=== PATIENT | female | born 1940 | race Two or more races ===

== ENCOUNTER 2018-02-12 11:05 | Inpatient (IN) | payer MEDICARE, MEDICAID ==
[~2018-02-12] VITALS: Ht 160 cm; Wt 59.0 kg
--- NOTE | 2018-02-12 11:30 | Emergency Room Report ---
History of Present Illness General Chief Complaint: Syncope Source: Patient, EMS Present Illness HPI The patient presents after a syncopal episode. She's not been eating well for several days and is had a productive cough. After syncopal episode she vomited once. It was the first time she's vomited. She denies any blood in the vomit and has had no melena or hematochezia. Stools been slightly loose. She has felt weak when she stands today. She also feels thirsty. She denies any chest pain or palpitations. She was taking a shower. She denies any significant trauma. The patient recently had nasal skin biopsy. She does not have the results of this. The patient has diabetes and hypertension. She also has asthma but denies wheezing. No fever, chills, dyspnea, dysuria, abdominal pain, calf pain/swelling, rashes, headache. Allergies: Coded Allergies: No Known Allergies (Unverified , 02/12/18) Patient History Past Medical History: see triage record Past Surgical History: hysterectomy Social History: Denies: smoking, alcohol use, drug use Social History Narrative At home Reviewed Nursing Documentation: PMH: Agreed; PSxH: Agreed Nursing Documentation-PMH Past Medical History: No History, Except For Hx Hypertension: Yes Review of Systems All Other Systems: negative except mentioned in HPI Physical Exam Vital Signs Date Time Temp Pulse Resp B/P (MAP) Pulse Ox O2 Delivery O2 Flow Rate FiO2 02/12/18 11:02 78 20 160/80 98 Room Air Sp02 EP Interpretation: reviewed, normal General Appearance: well appearing, no apparent distress, GCS 15 Head: normocephalic Eyes: bilateral eye normal inspection, bilateral eye PERRL, bilateral eye EOMI ENT: moist mucus membranes Neck: supple Respiratory: lungs clear, normal breath sounds Cardiovascular #1: regular rate, rhythm Cardiovascular #2: 2+ radial (R) Gastrointestinal: normal inspection, normal bowel sounds, non tender, no mass, non-distended Musculoskeletal: back normal, gait/station normal, normal range of motion Neurologic: alert, oriented x3, product craftsman III-XII nml as tested, motor strength/tone normal, DTRs symmetric, sensory intact, cerebellar normal, speech normal Psychiatric: mood/affect normal Skin: normal inspection, warm/dry, other - Biopsy area tip of nose Medical Decision Making Diagnostic Impression: Primary Impression: Syncope Qualified Codes: R55 - Syncope and collapse Additional Impression: UTI (urinary tract infection) Qualified Codes: N39.0 - Urinary tract infection, site not specified ER Course Patient presents with syncope. Differential includes acute myocardial infarction, arrhythmia, dehydration, vasovagal, amongst others. There's a prodrome of upper respiratory illness and therefore we need to exclude sepsis. The patient be evaluated with an EKG, chest x-ray, blood cultures, lactate and other labs. The patient will receive IV hydration and cardiac observation. EKG without injury. White count is minimally elevated. The patient has pyuria. Initial troponin is negative. Chest x-ray has a slight increased markings in the left lower lobe. Antibodies were begun. The patient is not observed coughing here and is improved with IV hydration. We still need to have cardiac observation for the syncope and also she needs IV antibiotics for the urinary tract infection. The patient is somewhat improved but admitted for further cardiac observation. Laboratory Tests Test 02/12/18 11:20 02/12/18 12:25 White Blood Count 11.8 K/UL (4.8-10.8) H Red Blood Count 4.13 M/UL (4.20-5.40) L Hemoglobin 12.0 G/DL (12.0-16.0) Hematocrit 36.7 % (37.0-47.0) L Mean Corpuscular Volume 89 FL (80-99) Mean Corpuscular Hemoglobin 29.0 PG (27.0-31.0) Mean Corpuscular Hemoglobin Concent 32.6 G/DL (32.0-36.0) Red Cell Distribution Width 12.4 % (11.6-14.8) Platelet Count 163 K/UL (150-450) Mean Platelet Volume 5.7 FL (6.5-10.1) L Neutrophils (%) (Auto) 48.8 % (45.0-75.0) Lymphocytes (%) (Auto) 39.7 % (20.0-45.0) Monocytes (%) (Auto) 9.3 % (1.0-10.0) Eosinophils (%) (Auto) 1.4 % (0.0-3.0) Basophils (%) (Auto) 0.8 % (0.0-2.0) Prothrombin Time 9.3 SEC (9.30-11.50) Prothrombin Time INR 0.9 (0.9-1.1) PTT 24 SEC (23-33) Sodium Level 136 MMOL/L (136-145) Potassium Level 3.7 MMOL/L (3.5-5.1) Chloride Level 100 MMOL/L (98-107) Carbon Dioxide Level 24 MMOL/L (21-32) Anion Gap 12 mmol/L (5-15) Blood Urea Nitrogen 15 mg/dL (7-18) Creatinine 0.9 MG/DL (0.55-1.30) Estimate Glomerular Filtration Rate mL/min (>60) Glucose Level 141 MG/DL (74-106) H Lactic Acid Level 1.50 mmol/L (0.66-2.22) Calcium Level 9.1 MG/DL (8.5-10.1) Total Bilirubin 0.4 MG/DL (0.2-1.0) Aspartate Amino Transferase (AST) 51 U/L (15-37) H Alanine Aminotransferase (ALT) 50 U/L (12-78) Alkaline Phosphatase 184 U/L (46-116) H Total Creatine Kinase 46 U/L (26-308) Troponin I 0.000 ng/mL (0.000-0.056) Pro-B-Type Natriuretic Peptide 325 pg/mL (0-125) H Total Protein 8.3 G/DL (6.4-8.2) H Albumin 3.6 G/DL (3.4-5.0) Globulin 4.7 g/dL Albumin/Globulin Ratio 0.8 (1.0-2.7) L Lipase 354 U/L (73-393) Urine Color Yellow Urine Appearance Turbid Urine pH 6 (4.5-8.0) Urine Specific [place] 1.020 (1.005-1.035) Urine Protein 3+ (NEGATIVE) H Urine Glucose (UA) Negative (NEGATIVE) Urine Ketones 1+ (NEGATIVE) H Urine Occult Blood 2+ (NEGATIVE) H Urine Nitrite Negative (NEGATIVE) Urine Bilirubin 1+ (NEGATIVE) H Urine Ictotest Negative Urine Urobilinogen 1 MG/DL (0.0-1.0) H Urine Leukocyte Esterase 3+ (NEGATIVE) H Urine RBC 5-10 /HPF (0 - 2) H Urine WBC 40-60 /HPF (0 - 2) H Urine Squamous Epithelial Cells Moderate /LPF (NONE/OCC) H Urine Bacteria Few /HPF (NONE) Urine Hyaline Casts 2-4 /LPF (NONE) H EKG Diagnostic Results Rate: normal Rhythm: NSR ST Segments: no acute changes Rhythm Strip Diag. Results EP Interpretation: yes Rhythm: NSR, no PVC's, no ectopy Chest X-Ray Diagnostic Results Chest X-Ray Diagnostic Results : Chest X-Ray Ordered: Yes # of Views/Limited/Complete: 1 View Indication: Other EP Interpretation: Yes Interpretation: no effusion, no pneumothorax, other - increased hope L base Impression: Other Electronically Signed by: Electronically signed by Mike Serrano MD Last Vital Signs Date Time Temp Pulse Resp B/P (MAP) Pulse Ox O2 Delivery O2 Flow Rate FiO2 02/12/18 14:50 97.4 74 20 138/49 99 Room Air 97.4 Status: improved Disposition: ADMITTED INPATIENT Condition: Serious Scripts Cephalexin* (KEFLEX*) 500 Mg Capsule 500 MG ORAL EVERY 12 HOURS for 5 Days, #10 CAP 0 Refills Prov: Leslye Bailey SHIPPING ASSOCIATE 02/14/18 Mike Serrano M.D. February 12, 2018 11:29
[2018-02-12] MEDS ORDERED: AMLODIPINE-BEN1 EAC1 ORAL (11:37)
[2018-02-12] MEDS ORDERED: LEVOTHYROXINE75 MCG ORAL (11:37)
[2018-02-12] MEDS ORDERED: CRESTOR10 M2 ORAL (11:37)
[2018-02-12] MEDS ORDERED: METFORMIN HCL500 M1 ORAL (11:37)
[2018-02-12] MEDS ORDERED: METOPROLOL TART50 MG ORAL (11:37)
[2018-02-12] MEDS ORDERED: MONTELUKAST SOD10 MG ORAL (11:37)
[2018-02-12 11:46] VITALS: BP 125/35
[2018-02-12 11:46] LABS: BASOPHILS % (AUTO) 0.8 % (0.0-2.0); EOSINOPHILS % (AUTO) 1.4 % (0.0-3.0); HEMATOCRIT 36.7 % (37.0-47.0); LYMPHOCYTES % (AUTO) 39.7 % (20.0-45.0); MEAN CORPUSCULAR VOLUME 89 FL (80-99); MONOCYTES % (AUTO) 9.3 % (1.0-10.0); NEUTROPHILS % (AUTO) 48.8 % (45.0-75.0); PLATELET COUNT 163 K/UL (150-450); RED BLOOD COUNT 4.13 M/UL (4.20-5.40); RED CELL DISTRIBUTION WIDTH 12.4 % (11.6-14.8); WHITE BLOOD COUNT 11.8 K/UL (4.8-10.8)
[2018-02-12 11:50] LABS: ANION GAP 12 mmol/L (5-15); BLOOD UREA NITROGEN 15 mg/dL (7-18); CALCIUM 9.1 MG/DL (8.5-10.1); CARBON DIOXIDE 24 MMOL/L (21-32); CHLORIDE 100 MMOL/L (98-107); CREATININE 0.9 MG/DL (0.55-1.30); POTASSIUM 3.7 MMOL/L (3.5-5.1); SODIUM 136 MMOL/L (136-145)
[2018-02-12 11:58] LABS: INR 0.9 (0.9-1.1)
--- NOTE | 2018-02-12 11:58 | Diagnostic Imaging Report ---
Indication: Chest pain Technique: One view of the chest Comparison: none Findings: The heart is borderline enlarged. The aorta is tortuous and calcified. There is some atelectasis at the left lung base. Lungs and pleural spaces otherwise clear. Impression: No acute process
[2018-02-12] MEDS ORDERED: cefTRIAXone 1 GM in NS 55 ML IVPB ONE (12:00)
[2018-02-12 12:04] LABS: ALANINE AMINOTRANSFERASE 50 U/L (12-78); ALBUMIN 3.6 G/DL (3.4-5.0); ALBUMIN/GLOBULIN RATIO 0.8 (1.0-2.7); ALKALINE PHOSPHATASE 184 U/L (46-116); ASPARTATE AMINO TRANSFERASE 51 U/L (15-37); BILIRUBIN,TOTAL 0.4 MG/DL (0.2-1.0); CREATINE KINASE 46 U/L (26-308)
[2018-02-12 12:45] LABS: APPEARANCE,URINE TURBID; BILIRUBIN, URINE 1+ (NEGATIVE); GLUCOSE, URINE (UA) NEGATIVE (NEGATIVE); KETONES,URINE 1+ (NEGATIVE); LEUKOCYTE ESTERASE ,URINE 3+ (NEGATIVE); NITRITE,URINE NEGATIVE (NEGATIVE); PH,URINE 6 (4.5-8.0); PROTEIN,URINE 3+ (NEGATIVE); UROBILINOGEN,URINE 1 MG/DL (0.0-1.0)
[2018-02-12 12:50] LABS: COLOR,URINE YELLOW
[2018-02-12 14:09] VITALS: BP 138/49
[2018-02-12] MEDS ORDERED: Norco 5mg/325mg tab ORAL PRN (17:15)
[2018-02-12 20:00] VITALS: BP 142/58
[2018-02-12] MEDS: Heparin 5000 units/ml inj SUBQ SCH (20:31)
[2018-02-12] MEDS: NovoLOG Insulin Flexpen SUBQ SCH (21:12)
[2018-02-13 04:00] VITALS: BP 126/65
[2018-02-13] MEDS: NovoLOG Insulin Flexpen SUBQ SCH ×4 (06:27→21:00)
[2018-02-13 08:00] VITALS: BP 147/57
[2018-02-13 08:30] LABS: BASOPHILS % (AUTO) 0.5 % (0.0-2.0); EOSINOPHILS % (AUTO) 0.6 % (0.0-3.0); HEMATOCRIT 30.9 % (37.0-47.0); HEMOGLOBIN 10.3 G/DL (12.0-16.0); LYMPHOCYTES % (AUTO) 37.4 % (20.0-45.0); MEAN CORPUSCULAR VOLUME 87 FL (80-99); MONOCYTES % (AUTO) 9.5 % (1.0-10.0); NEUTROPHILS % (AUTO) 51.9 % (45.0-75.0); PLATELET COUNT 144 K/UL (150-450); RED BLOOD COUNT 3.54 M/UL (4.20-5.40); RED CELL DISTRIBUTION WIDTH 12.1 % (11.6-14.8); WHITE BLOOD COUNT 8.6 K/UL (4.8-10.8)
[2018-02-13] MEDS: Heparin 5000 units/ml inj SUBQ SCH ×2 (09:00→21:00)
[2018-02-13 09:07] LABS: ALANINE AMINOTRANSFERASE 46 U/L (12-78); ALBUMIN 3.1 G/DL (3.4-5.0); ALBUMIN/GLOBULIN RATIO 0.8 (1.0-2.7); ALKALINE PHOSPHATASE 155 U/L (46-116); ANION GAP 12 mmol/L (5-15); ASPARTATE AMINO TRANSFERASE 43 U/L (15-37); BILIRUBIN,TOTAL 0.3 MG/DL (0.2-1.0); BLOOD UREA NITROGEN 10 mg/dL (7-18); CALCIUM 8.4 MG/DL (8.5-10.1); CARBON DIOXIDE 22 MMOL/L (21-32); CHLORIDE 103 MMOL/L (98-107); CHOLESTEROL 104 MG/DL (< 200); CREATININE 0.7 MG/DL (0.55-1.30); HDL CHOLESTEROL 33 MG/DL (40-60); POTASSIUM 3.7 MMOL/L (3.5-5.1); SODIUM 137 MMOL/L (136-145); TRIGLYCERIDES 80 MG/DL (30-150)
[2018-02-13] MEDS: Montelukast 10mg tablet ORAL SCH (10:04)
[2018-02-13] MEDS: Metoprolol Succinate XL 50mg tab ORAL SCH (10:04)
[2018-02-13 12:00] VITALS: BP 127/85
[2018-02-13] MEDS: cefTRIAXone 1 GM in D5W 55 ML IVPB SCH (14:08)
[2018-02-13] MEDS: guaiFENesin 100mg/5ml Liq ud ORAL PRN ×2 (15:32→21:14)
[2018-02-13 16:00] VITALS: BP 146/57
--- NOTE | 2018-02-13 16:12 | History and Physical ---
History of Present Illness General Date patient seen: February 13, 2018 Time patient seen: 14:00 Reason for Hospitalization: Syncope Present Illness HPI This is a 77 y/o female with a PMH of T2DM, HTN, HLD, and hypothyroidism that presented to the ED after having a syncopal episode and vomiting. Patient states that she had NBNB emesis prior to her syncopal episode. She states that she sat down on her bed, and then passed out but her son managed to catch her before she hit her head. Per son, the syncopal episode lasted about 2-3 minutes and after she regained consciousness, she had another NBNB emesis. Patient states that this has not happened to her before. Patient states that she has not been eating or drinking for the last several days because of lack of appetite and patient does state that she has been taking her medications, including her metformin. Patient was noted to have a UTI and was therefore started on abx in the ED. CXR was negative. Carotid U/S was normal with minimal soft plaque to right bulb. Patient also reports left lower extremity pain for several days. Denies swelling, erythema. Denies chest pain, sob, f/c, n/v, abdominal pain at this time. Allergies: Coded Allergies: No Known Allergies (Unverified , 02/12/18) Medication History Scheduled Amlodipine Besylate/Benazepril 10-40 Mg (Amlodipine-Benazepril 10-40 Mg), 1 CAP ORAL DAILY, (Reported) Levothyroxine Sodium* (Levothyroxine Sodium*), 50 MCG ORAL DAILY, (Reported) Metformin Hcl* (Metformin Hcl*), 500 MG ORAL TWICE A DAY, (Reported) Metoprolol Tartrate* (Metoprolol Tartrate*), 50 MG ORAL DAILY, (Reported) Montelukast Sodium* (Montelukast Sodium*), 10 MG ORAL DAILY, (Reported) Rosuvastatin Calcium* (Crestor*), 5 MG ORAL DAILY, (Reported) Patient History History Provided By: Patient, Family Member Healthcare decision maker Resuscitation status Full Code Advanced Directive on File Review of Systems All Other Systems: negative except mentioned in HPI Physical Exam General Appearance: no apparent distress, alert HEENT: normocephalic, atraumatic Neck: non-tender, normal alignment, supple Respiratory/Chest: chest wall non-tender, lungs clear, normal breath sounds Cardiovascular/Chest: normal peripheral pulses, normal rate, regular rhythm Abdomen: normal bowel sounds, non tender, soft Extremities: normal range of motion, non-tender Skin Exam: normal pigmentation, warm/dry 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, no motor/sensory deficits, alert, oriented x 3 Last 24 Hour Vital Signs Date Time Temp Pulse Resp B/P (MAP) Pulse Ox O2 Delivery O2 Flow Rate FiO2 02/13/18 16:00 98.2 79 20 146/57 99 Room Air 98.2 02/13/18 12:00 97.7 73 20 127/85 96 Room Air 97.7 02/13/18 12:00 78 02/13/18 10:04 79 147/57 02/13/18 10:04 79 147/57 02/13/18 10:03 147/57 02/13/18 09:10 81 02/13/18 09:05 77 02/13/18 09:00 73 02/13/18 08:00 79 02/13/18 08:00 96.3 79 20 147/57 97 Room Air 96.3 02/13/18 04:01 77 02/13/18 04:00 97.0 80 20 126/65 98 Room Air 97.0 02/12/18 23:38 77 02/12/18 20:10 80 02/12/18 20:05 80 02/12/18 20:00 76 02/12/18 20:00 98.0 80 20 142/58 99 Room Air 98.0 02/12/18 19:13 86 02/12/18 17:00 82 96 95 Intake and Output 02/12/18 02/13/18 19:00 07:00 Intake Total 1130 ml 750 ml Balance 1130 ml 750 ml Intake Oral 0 ml IV Total 1130 ml 750 ml # Voids 2 # Bowel Movements 1 Laboratory Tests Test 02/13/18 08:00 02/13/18 13:23 White Blood Count 8.6 K/UL (4.8-10.8) Red Blood Count 3.54 M/UL (4.20-5.40) L Hemoglobin 10.3 G/DL (12.0-16.0) L Hematocrit 30.9 % (37.0-47.0) L Mean Corpuscular Volume 87 FL (80-99) Mean Corpuscular Hemoglobin 29.2 PG (27.0-31.0) Mean Corpuscular Hemoglobin Concent 33.4 G/DL (32.0-36.0) Red Cell Distribution Width 12.1 % (11.6-14.8) Platelet Count 144 K/UL (150-450) L Mean Platelet Volume 5.9 FL (6.5-10.1) L Neutrophils (%) (Auto) 51.9 % (45.0-75.0) Lymphocytes (%) (Auto) 37.4 % (20.0-45.0) Monocytes (%) (Auto) 9.5 % (1.0-10.0) Eosinophils (%) (Auto) 0.6 % (0.0-3.0) Basophils (%) (Auto) 0.5 % (0.0-2.0) Sodium Level 137 MMOL/L (136-145) Potassium Level 3.7 MMOL/L (3.5-5.1) Chloride Level 103 MMOL/L (98-107) Carbon Dioxide Level 22 MMOL/L (21-32) Anion Gap 12 mmol/L (5-15) Blood Urea Nitrogen 10 mg/dL (7-18) Creatinine 0.7 MG/DL (0.55-1.30) Estimat Glomerular Filtration Rate mL/min (>60) Glucose Level 100 MG/DL (74-106) Hemoglobin A1c 6.6 % (4.3-6.0) H Calcium Level 8.4 MG/DL (8.5-10.1) L Total Bilirubin 0.3 MG/DL (0.2-1.0) Aspartate Amino Transf (AST/SGOT) 43 U/L (15-37) H Alanine Aminotransferase (ALT/SGPT) 46 U/L (12-78) Alkaline Phosphatase 155 U/L (46-116) H Total Protein 7.2 G/DL (6.4-8.2) Albumin 3.1 G/DL (3.4-5.0) L Globulin 4.1 g/dL Albumin/Globulin Ratio 0.8 (1.0-2.7) L Triglycerides Level 80 MG/DL (30-150) Cholesterol Level 104 MG/DL (< 200) LDL Cholesterol 55 mg/dL (<100) HDL Cholesterol 33 MG/DL (40-60) L Cholesterol/HDL Ratio 3.2 (3.3-4.4) L Thyroid Stimulating Hormone (TSH) 2.602 uiU/mL (0.358-3.740) Troponin I 0.000 ng/mL (0.000-0.056) Height (Feet): 5 Height (Inches): 3.00 Weight (Pounds): 130 Medications Current Medications Medications (Trade) Dose Ordered Sig/Abbie Route PRN Reason Start Time Stop Time Status Last Admin Dose Admin Acetaminophen (Tylenol) 650 mg Q6H PRN ORAL Mild Pain/Temp > 100.5 02/12/18 17:15 03/14/18 17:14 02/12/18 20:30 Acetaminophen/ Hydrocodone Bitart ([place] 5/325) 1 tab Q4H PRN ORAL Moderate Pain (Pain Scale 4-6) 02/12/18 17:15 02/19/18 17:14 Amlodipine Besylate (Norvasc) 10 mg DAILY ORAL 02/13/18 09:00 03/15/18 08:59 02/13/18 10:04 Atorvastatin Calcium (Lipitor) 10 mg BEDTIME ORAL 02/12/18 21:00 03/14/18 20:59 02/12/18 20:30 Benazepril HCl (Lotensin) 40 mg DAILY ORAL 02/13/18 09:00 03/15/18 08:59 02/13/18 10:03 Ceftriaxone Sodium 1 gm/ Dextrose 55 ml @ 110 mls/hr Q24H IVPB 02/13/18 12:00 02/20/18 11:59 02/13/18 14:08 Dextrose (Dextrose 50%) 25 ml STAT PRN IV Hypoglycemia 02/12/18 17:15 03/14/18 17:14 Dextrose (Dextrose 50%) 50 ml STAT PRN IV Hypoglycemia 02/12/18 17:15 03/14/18 17:14 Guaifenesin (Robitussin) 100 mg EVERY 6 HOURS PRN ORAL For Cough 02/13/18 14:15 03/15/18 14:14 02/13/18 15:32 Heparin Sodium (Porcine) (Heparin 5000 units/ml) 5,000 units EVERY 12 HOURS SUBQ 02/12/18 21:00 03/14/18 20:59 02/12/18 20:31 Insulin Aspart (NovoLOG) BEFORE MEALS AND HS SUBQ 02/12/18 21:00 03/14/18 20:59 02/12/18 21:12 Levothyroxine Sodium (Synthroid) 50 mcg DAILY@0630 ORAL 02/13/18 06:30 03/15/18 06:29 02/13/18 06:27 Metoprolol Succinate (Toprol XL) 50 mg DAILY ORAL 02/13/18 09:00 03/15/18 08:59 02/13/18 10:04 Montelukast Sodium (Singulair) 10 mg DAILY ORAL 02/13/18 09:00 03/15/18 08:59 02/13/18 10:04 Sodium Chloride 1,000 ml @ 75 mls/hr [id number] IV 02/12/18 18:01 03/14/18 18:00 02/13/18 06:00 Assessment/Plan Problem List: (1) Diabetes ICD Codes: E11.9 - Type 2 diabetes mellitus without complications SNOMED: 29530480 (2) Hypothyroid ICD Codes: E03.9 - Hypothyroidism, unspecified SNOMED: 18864789 (3) Hyperlipidemia ICD Codes: E78.5 - Hyperlipidemia, unspecified SNOMED: 50802612 (4) Hypertension ICD Codes: I10 - Essential (primary) hypertension SNOMED: 58564146 (5) Syncope ICD Codes: R55 - Syncope and collapse SNOMED: 399224288 Qualifiers: Qualified Codes: R55 - Syncope and collapse (6) UTI (urinary tract infection) ICD Codes: N39.0 - Urinary tract infection, site not specified SNOMED: 01252910 Qualifiers: Qualified Codes: N39.0 - Urinary tract infection, site not specified Status: stable, progressing Assessment/Plan Admit to tele Cardiology consulted Carotid U/S negative. F/u ECHO Orthostatics negative IV CTX for UTI. F/u urine cx. ROLANDO Continue home meds. Hold metformin in the hospital setting Venous ultrasound of bilateral lower extremities Pain control and supportive care Discussion: All workup has been negative thus far for syncope. Patient may likely have suffered from a syncopal episode given UTI, dehydration, and from hypoglycemic episode as patient had poor appetite and was continuing to take her diabetic medications. DVT Prophylaxis: SCD, HSQ Code Status: Full Hospital Classification Declaration: Based on this initial evaluation, and depending on the patient's clinical course, I anticipate that this patient will require hospitalization for 2-3 days for further syncopal workup and close respiratory/hemodynamic monitoring. Disposition: Once the patient is stable to leave the hospital, I anticipate the patient will likely be discharged to the following environment: home with I spent 80 minutes on this patient's case, and 42 minutes were dedicated to counseling and/or care coordination. Discussed with patient/family, nursing staff, SW/CM, son, regulatory affairs strategy specialist, regarding clinical status, treatment course, and disposition planning. Time of note may not reflect time of encounter. Leslye Bailey NP February 13, 2018 16:12
--- NOTE | 2018-02-13 16:42 | Cardiac Electrophysiology PN ---
Subjective Subjective [id number] Objective Last 24 Hour Vital Signs Date Time Temp Pulse Resp B/P (MAP) Pulse Ox O2 Delivery O2 Flow Rate FiO2 02/13/18 16:00 98.2 79 20 146/57 99 Room Air 98.2 02/13/18 12:00 97.7 73 20 127/85 96 Room Air 97.7 02/13/18 12:00 78 02/13/18 10:04 79 147/57 02/13/18 10:04 79 147/57 02/13/18 10:03 147/57 02/13/18 09:10 81 02/13/18 09:05 77 02/13/18 09:00 73 02/13/18 08:00 79 02/13/18 08:00 96.3 79 20 147/57 97 Room Air 96.3 02/13/18 04:01 77 02/13/18 04:00 97.0 80 20 126/65 98 Room Air 97.0 02/12/18 23:38 77 02/12/18 20:10 80 02/12/18 20:05 80 02/12/18 20:00 76 02/12/18 20:00 98.0 80 20 142/58 99 Room Air 98.0 02/12/18 19:13 86 02/12/18 17:00 82 96 95 Intake and Output 02/12/18 02/13/18 19:00 07:00 Intake Total 1130 ml 750 ml Balance 1130 ml 750 ml Intake Oral 0 ml IV Total 1130 ml 750 ml # Voids 2 # Bowel Movements 1 Laboratory Tests Test 02/13/18 08:00 02/13/18 13:23 White Blood Count 8.6 K/UL (4.8-10.8) Red Blood Count 3.54 M/UL (4.20-5.40) L Hemoglobin 10.3 G/DL (12.0-16.0) L Hematocrit 30.9 % (37.0-47.0) L Mean Corpuscular Volume 87 FL (80-99) Mean Corpuscular Hemoglobin 29.2 PG (27.0-31.0) Mean Corpuscular Hemoglobin Concent 33.4 G/DL (32.0-36.0) Red Cell Distribution Width 12.1 % (11.6-14.8) Platelet Count 144 K/UL (150-450) L Mean Platelet Volume 5.9 FL (6.5-10.1) L Neutrophils (%) (Auto) 51.9 % (45.0-75.0) Lymphocytes (%) (Auto) 37.4 % (20.0-45.0) Monocytes (%) (Auto) 9.5 % (1.0-10.0) Eosinophils (%) (Auto) 0.6 % (0.0-3.0) Basophils (%) (Auto) 0.5 % (0.0-2.0) Sodium Level 137 MMOL/L (136-145) Potassium Level 3.7 MMOL/L (3.5-5.1) Chloride Level 103 MMOL/L (98-107) Carbon Dioxide Level 22 MMOL/L (21-32) Anion Gap 12 mmol/L (5-15) Blood Urea Nitrogen 10 mg/dL (7-18) Creatinine 0.7 MG/DL (0.55-1.30) Estimat Glomerular Filtration Rate mL/min (>60) Glucose Level 100 MG/DL (74-106) Hemoglobin A1c 6.6 % (4.3-6.0) H Calcium Level 8.4 MG/DL (8.5-10.1) L Total Bilirubin 0.3 MG/DL (0.2-1.0) Aspartate Amino Transf (AST/SGOT) 43 U/L (15-37) H Alanine Aminotransferase (ALT/SGPT) 46 U/L (12-78) Alkaline Phosphatase 155 U/L (46-116) H Total Protein 7.2 G/DL (6.4-8.2) Albumin 3.1 G/DL (3.4-5.0) L Globulin 4.1 g/dL Albumin/Globulin Ratio 0.8 (1.0-2.7) L Triglycerides Level 80 MG/DL (30-150) Cholesterol Level 104 MG/DL (< 200) LDL Cholesterol 55 mg/dL (<100) HDL Cholesterol 33 MG/DL (40-60) L Cholesterol/HDL Ratio 3.2 (3.3-4.4) L Thyroid Stimulating Hormone (TSH) 2.602 uiU/mL (0.358-3.740) Troponin I 0.000 ng/mL (0.000-0.056) Microbiology Date/Time Source Procedure Growth Status 02/12/18 12:25 Urine,Clean Catch Urine Culture - Preliminary NO GROWTH Resulted Baudilio Main MD February 13, 2018 16:42
[2018-02-13 20:00] VITALS: BP 141/53
--- NOTE | 2018-02-13 22:30 | Consultation ---
DATE OF CONSULTATION: 02/13/2018 CARDIOLOGY CONSULTATION CONSULTING PHYSICIAN: Baudilio Main M.D. REFERRING PHYSICIAN: Shana Gamboa M.D. REASON FOR CONSULTATION: Syncope. HISTORY OF PRESENT ILLNESS: The patient is a 77-year-old lady with history of hypertension and hyperlipidemia, had a syncopal episode after she vomited once. She denies any blood in the vomit. Denies any history of prior coronary artery disease or congestive heart failure. The patient denies any chest pain or palpitation and this happened after she took a shower. The patient also has a recent nasal skin biopsy. At the time of my evaluation, the patient denies any chest pain, palpitation, or shortness of breath. PAST MEDICAL HISTORY: 1. Hypertension. 2. Diabetes. MEDICATIONS: Per reconciliation. FAMILY HISTORY: Noncontributory. REVIEW OF SYSTEMS: Review of systems was performed and was negative other than what was mentioned in the history of present illness. PHYSICAL EXAMINATION: VITAL SIGNS: Blood pressure of 146/57, pulse 79, respirations 20, and temperature 98.2 degrees. HEAD AND NECK: No JVD. LUNGS: Clear. CARDIOVASCULAR: Regular S1 and S2 with no gallop or murmur. ABDOMEN: Soft. EXTREMITIES: No pitting edema. LABORATORY AND DIAGNOSTIC DATA: Her EKG shows sinus rhythm with normal axis, normal electrocardiogram. Carotid ultrasound shows no significant stenosis, currently has 60% to 65%, no aortic stenosis, but moderate aortic insufficiency. Her labs show white count of 8.6, hemoglobin 10.3, hematocrit of 30.9, and platelet count of 144. Sodium is 137, potassium 3.7, BUN of 10, creatinine 0.7, and glucose of 100. Troponin negative x2. Pro-BNP is 325. ASSESSMENT AND PLAN: 1. Syncope, etiology is not clear at this time. The patient already ruled out for myocardial infarction. Ejection fraction is normal and there is no evidence of aortic stenosis or carotid stenosis. Her EKG is also essentially normal. We will check orthostatic vital signs. This maybe due to autonomic dysfunction in view of the patient's diabetes. 2. Hypertension, on Norvasc 10 mg daily, benazepril 40 mg daily, and Toprol-XL 50 mg daily. 3. Hyperlipidemia, on Lipitor. 4. Hypothyroidism, on Synthroid. 5. Diabetes, on insulin. Thank you very much for allowing me to participate in the care of this patient. Please do not hesitate to contact me for any questions regarding my evaluation. Baudilio Main M.D. DR: JAK JOB#: [id number] CC:
[2018-02-14] VITALS: BP 138/46
[2018-02-14 04:00] VITALS: BP 115/47
[2018-02-14 05:06] LABS: BASOPHILS % (AUTO) 0.5 % (0.0-2.0); EOSINOPHILS % (AUTO) 1.2 % (0.0-3.0); HEMATOCRIT 29.8 % (37.0-47.0); LYMPHOCYTES % (AUTO) 51.6 % (20.0-45.0); MEAN CORPUSCULAR VOLUME 88 FL (80-99); MONOCYTES % (AUTO) 10.3 % (1.0-10.0); NEUTROPHILS % (AUTO) 36.5 % (45.0-75.0); PLATELET COUNT 132 K/UL (150-450); RED BLOOD COUNT 3.37 M/UL (4.20-5.40); RED CELL DISTRIBUTION WIDTH 12.3 % (11.6-14.8); WHITE BLOOD COUNT 7.4 K/UL (4.8-10.8)
[2018-02-14 05:45] LABS: ANION GAP 11 mmol/L (5-15); BLOOD UREA NITROGEN 11 mg/dL (7-18); CALCIUM 8.6 MG/DL (8.5-10.1); CARBON DIOXIDE 23 MMOL/L (21-32); CHLORIDE 106 MMOL/L (98-107); CREATININE 0.8 MG/DL (0.55-1.30); POTASSIUM 3.6 MMOL/L (3.5-5.1); SODIUM 140 MMOL/L (136-145)
[2018-02-14] MEDS: guaiFENesin 100mg/5ml Liq ud ORAL PRN ×2 (06:24→14:30)
[2018-02-14] MEDS: NovoLOG Insulin Flexpen SUBQ SCH ×2 (06:25→11:31)
[2018-02-14 08:00] VITALS: BP 145/53
[2018-02-14] MEDS: Metoprolol Succinate XL 50mg tab ORAL SCH (08:30)
[2018-02-14] MEDS: Montelukast 10mg tablet ORAL SCH (08:30)
[2018-02-14] MEDS: Heparin 5000 units/ml inj SUBQ SCH (08:32)
[2018-02-14 12:00] VITALS: BP 132/54
--- NOTE | 2018-02-14 12:47 | Cardiology Report ---
APPROVED REPORT EKG Measurement Heart [id number] Normal sinus rhythm Minimal voltage criteria for LVH, may be normal variant Borderline ECG
--- NOTE | 2018-02-14 12:57 | Cardiology Report ---
APPROVED REPORT EXAM: Two-dimensional and M-mode echocardiogram with Doppler and color Doppler. INDICATION Syncope M-Mode DIMENSIONS IVSd1.8 (0.7-1.1cm)Left Atrium (MM)3.7 (1.6-4.0cm) LVDd3.8 (3.5-5.6cm)Aortic Root3.7 (2.0-3.7cm) PWd1.3 (0.7-1.1cm)Aortic Cusp Exc.2.0 (1.5-2.0cm) LVDs2.4 (2.5-4.0cm) PWs1.8 cm Normal left ventricular chamber size, systolic function and wall motion. Left ventricular ejection fraction estimated to be 60-65 %. Mild to moderte left ventricular hypertrophy. Anterior Echo-free space, may be due to pericardial fat or effusion. All other cardiac chamber sizes are within normal limits. Focal aortic valve sclerosis with adequate cusp excursion. Thickened mitral valve leaflets with normal excursion. Mitral annulus and aortic root calcification. Pulmonic valve not well visualized. Normal tricuspid valve structure. IVC at normal size with physiologic collapse. Lipomatous hypertrophy of the interatrial septum. Eustachian valve noted in right atrium. A color flow and spectral Doppler study was performed and revealed: Moderate aortic regurgitation. No mitral regurgitation. Mitral diastolic velocities suggest reduced left ventricular relaxation c/w mild LV diastolic dysfunction (Grade I ). Trace to mild tricuspid regurgitation. Tricuspid systolic velocities suggests peak right ventricular systolic pressure of 33 mmHg. Trace pulmonic regurgitation present.
[2018-02-14] MEDS: cefTRIAXone 1 GM in D5W 55 ML IVPB SCH (13:28)
[2018-02-14] MEDS ORDERED: CEPHALEXIN500 MG ORAL (14:07)
--- NOTE | 2018-02-14 14:39 | Cardiac Electrophysiology PN ---
Assessment/Plan Assessment/Plan 1. Syncope, etiology is not clear at this time. The patient already ruled out for myocardial infarction. Ejection fraction is normal and there is no evidence of aortic stenosis or carotid stenosis. Her EKG is also essentially normal. This maybe due to autonomic dysfunction in view of the patient's diabetes. 2. Hypertension, on Norvasc 10 mg daily, benazepril 40 mg daily, and Toprol-XL 50 mg daily. 3. Hyperlipidemia, on Lipitor. 4. Hypothyroidism, on Synthroid. 5. Diabetes, on insulin. 6. UTI On abx DC planning today Subjective Subjective Doing well. No CP or SOB. Getting iv Abx. Objective Last 24 Hour Vital Signs Date Time Temp Pulse Resp B/P (MAP) Pulse Ox O2 Delivery O2 Flow Rate FiO2 02/14/18 12:00 63 02/14/18 12:00 97.7 65 20 132/54 98 Room Air 97.7 02/14/18 12:00 65 62 64 02/14/18 08:31 65 140/53 02/14/18 08:30 65 140/53 02/14/18 08:29 140/53 02/14/18 08:00 61 02/14/18 08:00 97.4 65 20 145/53 99 Room Air 97.4 02/14/18 04:00 46 02/14/18 04:00 97.2 48 20 115/47 95 Room Air 97.2 02/14/18 00:00 48 02/14/18 00:00 97.5 63 20 138/46 94 Room Air 97.5 02/13/18 21:10 63 02/13/18 21:05 68 02/13/18 21:00 60 02/13/18 20:00 75 02/13/18 20:00 98.4 74 20 141/53 94 Room Air 98.4 02/13/18 16:00 98.2 79 20 146/57 99 Room Air 98.2 02/13/18 16:00 79 Intake and Output 02/13/18 02/14/18 19:00 07:00 Intake Total 480 ml 882 ml Balance 480 ml 882 ml Intake Oral 480 ml IV Total 882 ml # Voids 3 1 # Bowel Movements 1 1 Laboratory Tests Test 02/13/18 18:45 02/14/18 00:45 02/14/18 04:50 Troponin I 0.000 ng/mL (0.000-0.056) 0.000 ng/mL (0.000-0.056) White Blood Count 7.4 K/UL (4.8-10.8) Red Blood Count 3.37 M/UL (4.20-5.40) L Hemoglobin 10.0 G/DL (12.0-16.0) L Hematocrit 29.8 % (37.0-47.0) L Mean Corpuscular Volume 88 FL (80-99) Mean Corpuscular Hemoglobin 29.7 PG (27.0-31.0) Mean Corpuscular Hemoglobin Concent 33.6 G/DL (32.0-36.0) Red Cell Distribution Width 12.3 % (11.6-14.8) Platelet Count 132 K/UL (150-450) L Mean Platelet Volume 5.4 FL (6.5-10.1) L Neutrophils (%) (Auto) 36.5 % (45.0-75.0) L Lymphocytes (%) (Auto) 51.6 % (20.0-45.0) H Monocytes (%) (Auto) 10.3 % (1.0-10.0) H Eosinophils (%) (Auto) 1.2 % (0.0-3.0) Basophils (%) (Auto) 0.5 % (0.0-2.0) Sodium Level 140 MMOL/L (136-145) Potassium Level 3.6 MMOL/L (3.5-5.1) Chloride Level 106 MMOL/L (98-107) Carbon Dioxide Level 23 MMOL/L (21-32) Anion Gap 11 mmol/L (5-15) Blood Urea Nitrogen 11 mg/dL (7-18) Creatinine 0.8 MG/DL (0.55-1.30) Estimat Glomerular Filtration Rate mL/min (>60) Glucose Level 101 MG/DL (74-106) Calcium Level 8.6 MG/DL (8.5-10.1) Microbiology Date/Time Source Procedure Growth Status 02/12/18 11:10 Blood Blood Culture - Preliminary NO GROWTH AFTER 24 HOURS Resulted 02/12/18 11:10 Blood Blood Culture - Preliminary NO GROWTH AFTER 24 HOURS Resulted 02/12/18 12:25 Urine,Clean Catch Urine Culture - Preliminary Mixed Gram Positive Organism Resulted Objective HEAD AND NECK: No JVD. LUNGS: Clear. CARDIOVASCULAR: Regular S1 and S2 with no gallop or murmur. ABDOMEN: Soft. EXTREMITIES: No pitting edema. Baudilio Main MD February 14, 2018 14:39
--- NOTE | 2018-02-14 14:45 | Consultation ---
History of Present Illness General Date patient seen: February 14, 2018 Chief Complaint: Syncope Present Illness HPI 77-year-old lady with history of hypertension and hyperlipidemia, had a syncopal episode after she vomited once. the pt has cognitive impairment and irritable refuses some care. Allergies: Coded Allergies: No Known Allergies (Unverified , 02/12/18) Medication History Scheduled Amlodipine Besylate/Benazepril 10-40 Mg (Amlodipine-Benazepril 10-40 Mg), 1 CAP ORAL DAILY, (Reported) Cephalexin* (Keflex*), 500 MG ORAL EVERY 12 HOURS Levothyroxine Sodium* (Levothyroxine Sodium*), 50 MCG ORAL DAILY, (Reported) Metformin Hcl* (Metformin Hcl*), 500 MG ORAL TWICE A DAY, (Reported) Metoprolol Tartrate* (Metoprolol Tartrate*), 50 MG ORAL DAILY, (Reported) Montelukast Sodium* (Montelukast Sodium*), 10 MG ORAL DAILY, (Reported) Rosuvastatin Calcium* (Crestor*), 5 MG ORAL DAILY, (Reported) Patient History History Provided By: Patient, Medical Record, PMD Healthcare decision maker Resuscitation status Full Code Advanced Directive on File Past Medical/Surgical History Past Medical/Surgical History: (1) UTI (urinary tract infection) (2) Diabetes (3) Hyperlipidemia (4) Hypertension (5) Hypothyroid (6) Syncope Review of Systems Psychiatric: Reports: prior hx, anxiety, emotional problems Physical Exam General Appearance: no apparent distress, alert Neurologic: oriented x 3, responsive, depressed affect Last 24 Hour Vital Signs Date Time Temp Pulse Resp B/P (MAP) Pulse Ox O2 Delivery O2 Flow Rate FiO2 02/14/18 12:00 63 02/14/18 12:00 97.7 65 20 132/54 98 Room Air 97.7 02/14/18 12:00 65 62 64 02/14/18 08:31 65 140/53 02/14/18 08:30 65 140/53 02/14/18 08:29 140/53 02/14/18 08:00 61 02/14/18 08:00 97.4 65 20 145/53 99 Room Air 97.4 02/14/18 04:00 46 02/14/18 04:00 97.2 48 20 115/47 95 Room Air 97.2 02/14/18 00:00 48 02/14/18 00:00 97.5 63 20 138/46 94 Room Air 97.5 02/13/18 21:10 63 02/13/18 21:05 68 02/13/18 21:00 60 02/13/18 20:00 75 02/13/18 20:00 98.4 74 20 141/53 94 Room Air 98.4 02/13/18 16:00 98.2 79 20 146/57 99 Room Air 98.2 02/13/18 16:00 79 Intake and Output 02/13/18 02/14/18 19:00 07:00 Intake Total 480 ml 882 ml Balance 480 ml 882 ml Intake Oral 480 ml IV Total 882 ml # Voids 3 1 # Bowel Movements 1 1 Laboratory Tests Test 02/13/18 18:45 02/14/18 00:45 02/14/18 04:50 Troponin I 0.000 ng/mL (0.000-0.056) 0.000 ng/mL (0.000-0.056) White Blood Count 7.4 K/UL (4.8-10.8) Red Blood Count 3.37 M/UL (4.20-5.40) L Hemoglobin 10.0 G/DL (12.0-16.0) L Hematocrit 29.8 % (37.0-47.0) L Mean Corpuscular Volume 88 FL (80-99) Mean Corpuscular Hemoglobin 29.7 PG (27.0-31.0) Mean Corpuscular Hemoglobin Concent 33.6 G/DL (32.0-36.0) Red Cell Distribution Width 12.3 % (11.6-14.8) Platelet Count 132 K/UL (150-450) L Mean Platelet Volume 5.4 FL (6.5-10.1) L Neutrophils (%) (Auto) 36.5 % (45.0-75.0) L Lymphocytes (%) (Auto) 51.6 % (20.0-45.0) H Monocytes (%) (Auto) 10.3 % (1.0-10.0) H Eosinophils (%) (Auto) 1.2 % (0.0-3.0) Basophils (%) (Auto) 0.5 % (0.0-2.0) Sodium Level 140 MMOL/L (136-145) Potassium Level 3.6 MMOL/L (3.5-5.1) Chloride Level 106 MMOL/L (98-107) Carbon Dioxide Level 23 MMOL/L (21-32) Anion Gap 11 mmol/L (5-15) Blood Urea Nitrogen 11 mg/dL (7-18) Creatinine 0.8 MG/DL (0.55-1.30) Estimat Glomerular Filtration Rate mL/min (>60) Glucose Level 101 MG/DL (74-106) Calcium Level 8.6 MG/DL (8.5-10.1) Height (Feet): 5 Height (Inches): 3.00 Weight (Pounds): 130 Medications Current Medications Medications (Trade) Dose Ordered Sig/Abbie Route PRN Reason Start Time Stop Time Status Last Admin Dose Admin Acetaminophen (Tylenol) 650 mg Q6H PRN ORAL Mild Pain/Temp > 100.5 02/12/18 17:15 03/14/18 17:14 02/12/18 20:30 Acetaminophen/ Hydrocodone Bitart (Flint 5/325) 1 tab Q4H PRN ORAL Moderate Pain (Pain Scale 4-6) 02/12/18 17:15 02/19/18 17:14 Amlodipine Besylate (Norvasc) 10 mg DAILY ORAL 02/13/18 09:00 03/15/18 08:59 02/14/18 08:31 Atorvastatin Calcium (Lipitor) 10 mg BEDTIME ORAL 02/12/18 21:00 03/14/18 20:59 02/13/18 21:14 Benazepril HCl (Lotensin) 40 mg DAILY ORAL 02/13/18 09:00 03/15/18 08:59 02/14/18 08:29 Ceftriaxone Sodium 1 gm/ Dextrose 55 ml @ 110 mls/hr Q24H IVPB 02/13/18 12:00 02/20/18 11:59 02/14/18 13:28 Dextrose (Dextrose 50%) 25 ml STAT PRN IV Hypoglycemia 02/12/18 17:15 03/14/18 17:14 Dextrose (Dextrose 50%) 50 ml STAT PRN IV Hypoglycemia 02/12/18 17:15 03/14/18 17:14 Guaifenesin (Robitussin) 100 mg EVERY 6 HOURS PRN ORAL For Cough 02/13/18 14:15 03/15/18 14:14 02/14/18 14:30 Heparin Sodium (Porcine) (Heparin 5000 units/ml) 5,000 units EVERY 12 HOURS SUBQ 02/12/18 21:00 03/14/18 20:59 02/12/18 20:31 Insulin Aspart (NovoLOG) BEFORE MEALS AND HS SUBQ 02/12/18 21:00 03/14/18 20:59 02/14/18 11:31 Levothyroxine Sodium (Synthroid) 50 mcg DAILY@0630 ORAL 02/13/18 06:30 03/15/18 06:29 02/14/18 06:24 Metoprolol Succinate (Toprol XL) 50 mg DAILY ORAL 02/13/18 09:00 03/15/18 08:59 02/14/18 08:30 Montelukast Sodium (Singulair) 10 mg DAILY ORAL 02/13/18 09:00 03/15/18 08:59 02/14/18 08:30 Sodium Chloride 1,000 ml @ 75 mls/hr [id number] IV 02/12/18 18:01 03/14/18 18:00 02/14/18 10:19 Assessment/Plan Status: stable, progressing Assessment/Plan cognitive impairment the pt was provided with marylou/Rima Swan M.D. February 14, 2018 14:45
--- NOTE | 2018-02-15 00:51 | Discharge Summary ---
Discharge Summary Hospital Course Date of Admission February 12, 2018 at 12:20 Date of Discharge February 14, 2018 at 16:00 Admitting Diagnosis syncope HPI Elvie Mathews is a 77 year old female who was admitted on February 12, 2018 at 12:20 for Syncope This is a 77 y/o female with a PMH of T2DM, HTN, HLD, and hypothyroidism that presented to the ED after having a syncopal episode and vomiting. Patient states that she had NBNB emesis prior to her syncopal episode. She states that she sat down on her bed, and then passed out but her son managed to catch her before she hit her head. Per son, the syncopal episode lasted about 2-3 minutes and after she regained consciousness, she had another NBNB emesis. Patient states that this has not happened to her before. Patient states that she has not been eating or drinking for the last several days because of lack of appetite and patient does state that she has been taking her medications, including her metformin. Patient was noted to have a UTI and was therefore started on abx in the ED. CXR was negative. Carotid U/S was normal with minimal soft plaque to right bulb. Patient also reports left lower extremity pain for several days. Denies swelling, erythema. Denies chest pain, sob, f/c, n/v, abdominal pain at this time. Consultations Cardiology, Dr. Main Hospital Course Patient was admitted to telemetry. Cardiology was consulted. Carotid ultrasound was unremarkable. ECHO showed 60% EF with no wall motion abnormality. Orthostatics were also negative. Patient was given IVF and was also noted to have a UTI and was started on IV ceftriaxone. Patient's metformin was held in the hospital setting and was started on sliding scale. Patient's blood sugars remained stable in hospital and patient's A1c was noted to be 6.2. Patient's other home meds were continued. All cardiac workup was negative and patient's syncopal episode was likely noted to be due to autonomic dysfunction given h/o DM as patient was not eating or drinking for the last two days likely 2/2 urinary tract infection. Patient also noted bilateral lower extremity pain and venous duplex of bilateral lower extremities was negative. Patient was therefore stable for discharge and was discharged to home with prescrpitions ins pharmacy. Discharge Medications New Medications: Cephalexin* (Keflex*) 500 Mg Capsule 500 MG ORAL EVERY 12 HOURS for 5 Days, #10 CAP 0 Refills Continued Medications: Amlodipine Besylate/Benazepril 10-40 Mg (Amlodipine-Benazepril 10-40 Mg) 1 Each Capsule 1 CAP ORAL DAILY, CAP (This prescription has been renewed) Levothyroxine Sodium* (Levothyroxine Sodium*) 75 Mcg Tablet 50 MCG ORAL DAILY, TAB (This prescription has been renewed) Take in the morning on an empty stomach, at least 30 minutes before food. Metformin Hcl* (Metformin Hcl*) 500 Mg Tablet 500 MG ORAL TWICE A DAY, TAB (This prescription has been renewed) Metoprolol Tartrate* (Metoprolol Tartrate*) 50 Mg Tablet 50 MG ORAL DAILY, TAB 0 Refills (This prescription has been renewed) Montelukast Sodium* (Montelukast Sodium*) 10 Mg Tablet 10 MG ORAL DAILY, TAB (This prescription has been renewed) Rosuvastatin Calcium* (Crestor*) 10 Mg Tablet 5 MG ORAL DAILY, TAB (This prescription has been renewed) Discharge Condition Upon Discharge: improving Discharge Disposition Patient was discharged to Home (01) Discharge Diagnoses: (1) Syncope (2) Diabetes (3) Hyperlipidemia (4) Hypertension (5) Hypothyroid Leslye Bailey NP February 15, 2018 00:51
== END 2018-02-14 16:00 | disposition home or self-care (01) | DRG 882 ==
LOC: EDBD 11:05 → EMR 12:03 → 2E 12:20 → EDBEDREQ 12:27
DX: F45.8 Other somatoform disorders (principal); N39.0 Urinary tract infection, site not specified; I10 Essential (primary) hypertension; E78.5 Hyperlipidemia, unspecified; E03.9 Hypothyroidism, unspecified; E11.9 Type 2 diabetes mellitus without complications; Z79.4 Long term (current) use of insulin
CPT/HCPCS: 36415; 71045; 80048; 80053; 80061; 81003; 82550; 82962; 83036; 83605; 83690; 83880; 84443; 84484; 85025; 85610; 85730; 87040; 87086; 93005; 93306; 93880; 93970; 99285; J1815